=== PATIENT | male | born 1950 | race Native Hawaiian/Other Pacific Islander ===

== ENCOUNTER 2018-06-25 12:37 | Outpatient (CLI) | payer OTHER, MEDICARE ==
[2018-06-25 13:03] LABS: PLATELET COUNT 192 K/uL (142-355)
[2018-06-25 13:19] LABS: POTASSIUM 3.5 mmol/L (3.6-5.2)
== END 2018-06-25 22:29 | disposition home or self-care (01) ==
LOC: LABW 12:37
PROVIDERS: Dermatology
DX: R53.82 Chronic fatigue, unspecified (principal); Z79.899 Other long term (current) drug therapy
CPT/HCPCS: 36415; 80053; 80074; 85027; 86480

== ENCOUNTER 2019-04-23 18:22 | Outpatient (CLI) | payer OTHER, MEDICARE | END 2019-04-23 18:31 | disposition short-term general hospital (02) | LOC: AMB 18:22 | DX: R41.82 Altered mental status, unspecified (principal) | CPT/HCPCS: A0425; A0427 ==

== ENCOUNTER 2019-04-23 18:34 | Emergency (ER) | payer OTHER, MEDICARE ==
[~2019-04-23] VITALS: Ht 175.3 cm; Wt 81.6 kg
[2019-04-23 19:07] LABS: PLATELET COUNT 30 K/uL (142-355)
[2019-04-23 19:15] LABS: POTASSIUM 3.9 mmol/L (3.6-5.2); SODIUM 136 mmol/L (136-145)
[2019-04-23 19:33] LABS: PARTIAL THROMBOPLASTIN TIME 39.7 SECONDS (24.5-33.6)
[2019-04-23 20:00] VITALS: TEMP 97.8
[2019-04-23 20:45] VITALS: BP 118/67
== END 2019-04-23 20:45 | disposition short-term general hospital (02) ==
LOC: ED 18:36
PROVIDERS: Emergency Medicine
DX: R41.82 Altered mental status, unspecified (principal); N17.9 Acute kidney failure, unspecified; E86.0 Dehydration; I48.91 Unspecified atrial fibrillation
CPT/HCPCS: 51702; 80053; 80307; 82550; 82962; 83874; 84484; 85027; 85379; 85610; 85730; 96360; 96361; 96365; 96375; 96376; 99285; J0153; J0696; J2060; J3490

== ENCOUNTER 2019-04-23 20:59 | Outpatient (CLI) | payer OTHER, MEDICARE | END 2019-04-23 22:44 | disposition short-term general hospital (02) | LOC: AMB 20:59 | DX: N17.8 Other acute kidney failure (principal); E86.0 Dehydration; T67.0XXA Heatstroke and sunstroke, initial encounter; R79.89 Other specified abnormal findings of blood chemistry; R41.82 Altered mental status, unspecified | CPT/HCPCS: A0425; A0429 ==